=== PATIENT | female | born 1980 | race Caucasian/White ===

== ENCOUNTER 2016-10-20 14:44 | Emergency (ER) | payer BC ==
[2016-10-20 15:23] LABS: BASOPHILS 0.2 % (0.0-2.0); EOSINOPHILS 0.3 % (0-7); HEMATOCRIT 39.4 % (36.0-48.0); IMMATURE GRANULOCYTES 0.2 % (0-5); LYMPHOCYTES 31.8 % (15-50); MEAN PLATELET VOLUME 11.6 fL (7.4-10.4); MONOCYTES 8.5 % (2-11); PLATELET COUNT 152 10x3/uL (130-400); RBC 4.33 10x6/uL (4.00-5.40); RDW 13.1 % (11.5-14.5); WBC 5.8 10x3/uL (4.8-10.8)
[2016-10-20 15:42] LABS: ALKALINE PHOSPHATASE 59 U/L (46-116); ALT (SGPT) 26 U/L (10-68); BILIRUBIN - TOTAL 0.64 mg/dL (0.2-1.3); CALC OSMOLALITY 284 mosm/kg (275-300); CALCIUM 8.9 mg/dL (8.5-10.1); CARBON DIOXIDE 29.2 mmol/L (21.0-32.0); CHLORIDE - SERUM 105 mmol/L (98-107); CREATININE - SERUM 1.1 mg/dL (0.6-1.3); GLUCOSE 88 mg/dL (74-106); POTASSIUM - SERUM 3.5 mmol/L (3.5-5.1); PROTEIN - SERUM 7.3 g/dL (6.4-8.2); SODIUM 143 mmol/L (136-145); UREA NITROGEN 15 mg/dL (7-18); eGFR NON AFRICAN AMERICAN 60 mL/min (90-120)
[2016-10-20 15:58] LABS: CKMB 0.4 U/L (0.0-3.6); CREATINE KINASE 61 UL (21-215); TROPONIN-I < 0.017 ng/mL (0.000-0.060)
== END 2016-10-20 17:20 | disposition home or self-care (01) ==
LOC: D.ER 14:44
PROVIDERS: Emergency Medicine
DX: R07.9 Chest pain, unspecified (principal); I10 Essential (primary) hypertension; E03.9 Hypothyroidism, unspecified

== ENCOUNTER → 2019-06-28 12:40 | Outpatient (CLI) | payer MEDICAID ==
--- NOTE | 2019-07-04 13:38 | EC ---
PATIENT:HENNY GEORGE DATE OF SERVICE: 06/28/19 SEX: F MEDICAL RECORD: [id number] DATE OF : [birth year] LOCATION:[facility] AGE OF PATIENT: 38 ADMISSION DATE: 06/28/19 REFERRING PHYSICIAN: INTERPRETING PHYSICIAN: FRANCISCO SHARMA MD ECHOCARDIOGRAM REPORT ECHO CHARGES 4 ECHO COMPLETE Date: 06/28/19 CLINICAL DIAGNOSIS: HTN/EDEMA/MURMUR/ATYPICAL CP/ PALPITATIONS/PVC'S ECHOCARDIOGRAPHIC MEASUREMENTS (adult normal given) AC root (d.<3.7cm) 2.6 cm LV Septum d (<1.2 cm> 1.0 cm Valve Excursion 1.9 cm LV Septum (systole) 1.2 cm Left Atria (s.<4.0cm> 3.3 cm LVPW d(<1.2cm) 0.9 cm RV (d.<2.3cm) 2.0 cm LVPW (sytole) 1.4 cm LV diastole(<5.6CM) 4.5 cm MV E-F(>70mm/sec) cm LV systole 2.8 cm LVOT Diameter 1.8 cm MV exc.(>10mm) cm Est.ejection fraction (50-75%) % DOPPLER: LVIT cm/sec A 67.0 cm/sec E 112 cm/sec LA cm/sec RVSP 24.0 mmHg LVOT 118 cm/sec AOP1/2T m/s Asc. Ao 135 cm/sec RVOT 76.0 cm/sec RA cm/sec PA 106 cm/sec AV Gradient Peak 7.3 mmHg AV Mean 4.5 mmHg AV Area 2.2 cm MV Gradient Peak 5.2 mmHg MV Mean 2.0 mmHg MV Area cm COMMENTS: OP - HC Skate Hop: 1 DAVID PYATT Upper Doubler: 3 Dr. Golden TAPE# PACS Pericardial Effusion N DATE OF SERVICE: Adequate 2D, color-flow, spectral Doppler, and M-mode. No LVH. LV internal dimension is normal. Wall motion is normal. EF is greater than or equal to 55%. Aortic valve is tricuspid. No evidence of stenosis by Doppler interrogation. Left atrium normal at 3.3 cm. Mitral valve shows no prolapse. Trace MR. Right-sided chambers are grossly normal. Trace TR. TRANSINT:[id number] Voice Confirmation ID: [id number] DOCUMENT ID: [id number] ECHOCARDIOGRAM REPORT [id number] HENNY GEORGE,FRANCISCO Ye MD at 1338 CC: [id number] DICTATION DATE: 07/02/19 1242 GREASER AND OILER: 07/02/19 1306 DEP CLI 06/28/19 [place] [id number] [place] [id number]
== END | disposition home or self-care (01) ==
LOC: D.HCCECHO 12:40
PROVIDERS: ATTEND Internal Medicine Interventional Cardiology
DX: R01.1 Cardiac murmur, unspecified (principal)

== ENCOUNTER 2019-11-14 19:53 | Emergency (ER) | payer MEDICAID ==
[~2019-11-14] VITALS: Ht 160 cm; Wt 88.6 kg
[2019-11-14 19:55] VITALS: Ht 160 cm; Wt 88.6 kg
[2019-11-14] MEDS ORDERED: EFFEXOR75 MG PO (20:06)
[2019-11-14] MEDS ORDERED: KLONOPIN1 MG PO (20:06)
[2019-11-14] MEDS ORDERED: TOPROL XL50 MG PO (20:06)
[2019-11-14] MEDS ORDERED: SYNTHROID175 MCG PO (20:07)
[2019-11-14] MEDS ORDERED: MOBIC7.5 MG PO (20:07)
[2019-11-14] MEDS ORDERED: HYDROCHLOROTH12.5 M1 PO (20:08)
[2019-11-14 20:47] LABS: BASOPHILS 0.1 % (0-2); EOSINOPHILS 2.5 % (0-7); HEMATOCRIT 38.6 % (36.0-48.0); HEMOGLOBIN 12.8 g/dL (12-16); IMMATURE GRANULOCYTES 0.6 % (0-5); MCH 30.2 pg (26.0-34.0); MCHC 33.2 g/dL (31.0-37.0); MEAN PLATELET VOLUME 11.4 fL (7.4-10.4); NEUTROPHILS 63.8 % (40-80); PLATELET COUNT 164 10x3/uL (130-400); RBC 4.24 10x6/uL (4.00-5.40); RDW 14.1 % (11.5-14.5); WBC 7.2 10x3/uL (4.8-10.8)
[2019-11-14 20:54] LABS: HCG URINE NEGATIVE (NEGATIVE)
[2019-11-14 20:56] LABS: BACTERIA FEW /hpf (NEGATIVE); BILIRUBIN NEGATIVE (NEGATIVE); GLUCOSE NEGATIVE (NEGATIVE); KETONE NEGATIVE (NEGATIVE); NITRITE NEGATIVE (NEGATIVE); RED CELLS - URINE OCC /hpf (0-5); SPECIFIC GRAVITY 1.015 (1.005-1.020); UROBILINOGEN NORMAL (NORMAL); WHITE CELLS - URINE 0-5 /hpf (NEGATIVE)
[2019-11-14 21:16] LABS: CALC OSMOLALITY 283 mosm/kg (275-300); CALCIUM 8.8 mg/dL (8.5-10.1); CARBON DIOXIDE 26.5 mmol/L (21.0-32.0); CHLORIDE - SERUM 107 mmol/L (98-107); CREATININE - SERUM 0.9 mg/dL (0.6-1.3); GLUCOSE 105 mg/dL (74-106); POTASSIUM - SERUM 3.7 mmol/L (3.5-5.1); SODIUM 142 mmol/L (136-145); UREA NITROGEN 15 mg/dL (7-18); eGFR NON AFRICAN AMERICAN 75 mL/min (90-120)
[2019-11-14 21:32] LABS: ALBUMIN 4.1 g/dL (3.4-5.0); ALKALINE PHOSPHATASE 49 U/L (30-120); ALT (SGPT) 27 U/L (10-68); BILIRUBIN - TOTAL 0.75 mg/dL (0.2-1.3); PRO BNP 141 pg/mL (0-125); PROTEIN - SERUM 7.2 g/dL (6.4-8.2)
[2019-11-14 21:34] LABS: THYROID STIMULATING HORMONE 105.92 uIU/mL (0.36-3.74); TROPONIN-I < 0.017 ng/mL (0.000-0.060)
[2019-11-15 00:25] VITALS: BP 123/62
== END 2019-11-15 00:25 | disposition home or self-care (01) ==
LOC: D.ER 19:53
PROVIDERS: Family Medicine
DX: R00.2 Palpitations (principal); E03.9 Hypothyroidism, unspecified; R55 Syncope and collapse